=== PATIENT | female | born 1980 | race African-American/Black ===

== ENCOUNTER 2017-03-01 11:15 | Emergency (ER) | payer BC ==
[2017-03-01 11:42] VITALS: TEMP 99.5; BMI 42.9
--- NOTE | 2017-03-01 13:03 | PDOC ---
Attending Attestation - Resident Resident Name: Shilpi Blanton - ED Attending Attestation I have performed the following: I have examined & evaluated the patient, The case was reviewed & discussed with the resident, I agree w/resident's findings & plan, Exceptions are as noted - HPI HPI: 03/01/17 13:03 36y A2 at approx 6 weeks gestation presents with 1 day of vaginal bleeding and cramping. no associated fever/chlils, back pain, dysuria. on exam pt noted to have moderate amount of vaginal bleeding. os seems to be closed will ck US beta, type, cbc will reassess
--- NOTE | 2017-03-01 13:13 | PDOC ---
History of Present Illness - General Chief Complaint: Vaginal Bleeding Stated Complaint: VAGINAL BLEEDING (6 WKS ) Time Seen by Provider: 03/01/17 12:41 - History of Present Illness Initial Comments: Ms. Field is a 36yo A2 w/ IUP at 6 weeks who presents with 1 day of vaginal bleeding and lower abdominal cramps. is a confirmed IUP w/ ultrasound at outpatient [facility]. States it started off as spotting, then progressed to heavy bleeding w/ large clots. Abdominal pain is suprapubic, not lateralized. Pt has had one prior nonspontaneous Ab and one spontaneous second trimester Ab 2/2 incompetent cervix. She denies fevers, chills, generalized weakness. Has hx of Uterine fibroids. Past History - Past Medical History Allergies/Adverse Reactions: Allergies Allergy/AdvReac Type Severity Reaction Status Date / Time No Known Allergies Allergy Verified 03/01/17 11:38 Home Medications: Ambulatory Orders Ibuprofen [Motrin -] 400 mg PO TID #21 tablet 03/01/17 Asthma: Yes COPD: No - Surgical History Abdominal Surgery: Yes (d and c after 5months misscarriage) - Suicide/Smoking/Psychosocial Hx Smoking History: Never smoked Have you smoked in the past 12 months: No Information on smoking cessation initiated: No Hx Alcohol Use: No Drug/Substance Use Hx: No Substance Use Type: None *Physical Exam - Vital Signs Last Vital Signs Temp Pulse Resp BP Pulse Ox 99.5 F 66 18 117/76 100 03/01/17 11:39 03/01/17 11:39 03/01/17 11:39 03/01/17 11:39 03/01/17 11:39 - Physical Exam Comments: GEN: AAOx3, Crying in mild distress due to pain HEENT: PERRLA, EOMi CV: S1, S2, RRR w/ ectopic beats LUNG: CTABL ABD: Soft, TTP in suprapubic region MSK: No edema, no erythema : Thin bright red blood in vaginal vault, non-erythematous mucosa Cervix pink, blood draining from os On bimanual cervix appears closed NEURO: CN 2-12 grossly intact ED Treatment Course - LABORATORY CBC & Chemistry Diagram: 03/01/17 13:11 - RADIOLOGY Radiology Studies Ordered: Category Date Time Status US(SINGLE) [US] Stat Ultrasound 03/01/17 13:02 Ordered Medical Decision Making - Medical Decision Making 36yo A2 w/ IUP at 6 weeks who presents with vaginal bleeding and lower abd cramps. Cervix appears closed. DDx includes miscarriage and unlikely ectopic . Support given. -- CBC, T&S, UA -- Beta HCG quantitative -- Ultrasound 03/01/17 16:23 bHCG low, ultrasound shows no intrauterine gestation, incompatible with IUP. No retained products. Complete Ab. Patient was notified. Support given. DIspo home w/ OBGYN followup 03/01/17 16:28 *DC/Admit/Observation/Transfer Diagnosis at time of Disposition: Complete - Discharge Dispostion Disposition: HOME Condition at time of disposition: Good Admit: No - Prescriptions Prescriptions: Ibuprofen [Motrin -] 400 mg PO TID #21 tablet - Referrals Referrals: Jatin Banks [Non Staff, Medical] - 1 week - Patient Instructions Printed Discharge Instructions: DI for Miscarriage - Post Discharge Activity
[2017-03-01 14:35] LABS: BASO % 0.4 % (0-2.0); EOS % 0.6 % (0-4.5); HEMATOCRIT 40.1 % (32.4-45.2); LYMPH % 20.6 % (8-40); MCH 27.3 pg (25.7-33.7); MCHC 32.3 g/dl (32.0-36.0); MEAN CELL VOLUME 84.4 fl (80-96); MONO % 6.8 % (3.8-10.2); NEUT % 71.6 % (42.8-82.8); PLATELET COUNT 349 K/MM3 (134-434); RBC 4.76 M/mm3 (3.60-5.2); RDW 14.3 % (11.6-15.6); WHITE BLOOD COUNT 8.5 K/mm3 (4.0-10.0)
[2017-03-01 14:38] LABS: URINE APPEARANCE CLOUDY; URINE BILIRUBIN NEGATIVE (NEGATIVE); URINE BLOOD 3+ (NEGATIVE); URINE COLOR YELLOW; URINE GLUCOSE (UA) NEGATIVE (NEGATIVE); URINE KETONE NEGATIVE (NEGATIVE); URINE LEUK ESTERASE TRACE (NEGATIVE); URINE NITRITE NEGATIVE (NEGATIVE); URINE UROBILINOGEN NEGATIVE mg/dL (0.2-1.0)
[2017-03-01 14:41] LABS: URINE PROTEIN 1+ (NEGATIVE)
[2017-03-01 15:33] LABS: EPI CELLS RARE /HPF (FEW); URINE MUCUS FEW
[2017-03-01] MEDS ORDERED: IBUPROFEN 600 MG TABLET (FP) PO ONE ×2 (16:15→16:31)
[2017-03-01 17:00] VITALS: BP 121/72; PULSE 72
== END 2017-03-01 17:01 | disposition home or self-care (01) ==
LOC: JER 11:15
DX: O26.891 Other specified pregnancy related conditions, first trimester (principal); O03.9 Complete or unspecified spontaneous abortion without complication; Z3A.01 Less than 8 weeks gestation of pregnancy
CPT/HCPCS: 36415; 76801-TC; 81003; 81015; 84702; 85025; 86850; 86900; 86901; 99283-25